=== PATIENT | male | born 1950 | race African-American/Black ===

== ENCOUNTER 2018-06-13 12:07 | Inpatient (IN) | payer OTHER, MEDICAID ==
[~2018-06-13] VITALS: Ht 180.3 cm; Wt 86.2 kg
[2018-06-13] VITALS (19 sets, daily range): BP systolic 99–126; BP diastolic 47–82
[2018-06-13] MEDS ORDERED: SODIUM CHLORIDE 0.9% 1,000 ML IV ONE (13:17)
[2018-06-13 13:20] LABS: BG BASE EXCESS 1.7 mmol/L (-2.0-2.0); BG CARBOXYHEMOGLOBIN 1.6 % (0.5-1.5); BG DEOXYHEMOGLOBIN 6.1 % (0.0-5.0); BG FRACTION INSPIRED OXYGEN 21; BG HCO3 ACT 25.5 mmol/L (22.0-26.0); BG METHEMOGLOBIN 0.2 % (0.0-1.5); BG OXYGEN SATURATION 93.8 % (92.0-98.5); BG OXYHEMOGLOBIN 92.1 % (94.0-97.0); BG PCO2 37.4 mmHg (35.0-45.0); BG PH 7.451 (7.350-7.450); BG PO2 68.1 mmHg (75.0-100.0); BG SAMPLE SITE RIGHT RADIAL; BG TOTAL HEMOGLOBIN 14.9 g/dL (12.0-18.0); BG VENT MODE ROOM AIR
[2018-06-13 13:27] LABS: BASOPHILS % 0.7 % (0.0-2.0); EOSINOPHILS % 0.2 % (0.0-5.0); HEMATOCRIT. 44.4 % (42.0-52.0); HEMOGLOBIN. 14.5 g/dL (14.0-18.0); LYMPHOCYTES % 23.2 % (20.0-50.0); MEAN CORPUSCULAR HEMOGLOBIN 29.8 pg (28.0-32.0); MEAN CORPUSCULAR VOLUME 91.2 fL (80.0-94.0); MONOCYTES % 9.4 % (2.0-8.0); NEUTROPHILS % 66.5 % (40.0-76.0); PLATELET 285 x1000/uL (130-400); RED BLOOD CELL COUNT 4.87 mill/uL (4.7-6.1); RED CELL DISTRIBUTION WIDTH 15.4 % (11.6-14.6)
[2018-06-13 13:39] LABS: INR 1.1; PARTIAL THROMBOPLASTIN TIME 27.1 sec (23.4-31.0); PROTHROMBIN TIME 10.7 sec (9.1-11.1)
[2018-06-13 14:00] LABS: CHLORIDE 107 mEq/L (98-107)
[2018-06-13] MEDS ORDERED: LEVETIRACETAM 500MG PREMIX 100 ML IV ONE (14:00)
[2018-06-13] MEDS ORDERED: DEXAMETHASONE 10 MG/ML VIAL IV ONE (14:00)
[2018-06-13 14:05] LABS: ETHANOL BLOOD < 10 mg/dL
[2018-06-13 14:09] LABS: CREATINE KINASE 437 IU/L (39-308)
[2018-06-13] MEDS ORDERED: NICARDIPINE 50 MG in SODIUM CHLORIDE 0.9% 230 ML IV STA (14:12)
[2018-06-13] MEDS ORDERED: THROMBIN (BOVINE) 5000 UNITS/VIAL TOP ONE (14:29)
[2018-06-13] MEDS ORDERED: GELATIN SPONGE,ABSORBABLE 12-7MM SPONGE ONE (14:29)
[2018-06-13] MEDS ORDERED: NORMAL SALINE 0.9% 10 ML SYR ONE (14:29)
[2018-06-13] MEDS ORDERED: LIDOCAINE HCL/EPINEPHRINE 1%-EPI 1:100,000 20 ML VIAL ONE (14:30)
[2018-06-13] MEDS ORDERED: NICARDIPINE 100 MG in SODIUM CHLORIDE 0.9% 60 ML IV PRN (14:30)
[2018-06-13] MEDS ORDERED: BACITRACIN 50,000 UNITS/VIAL ONE (14:30)
[2018-06-13] MEDS ORDERED: POVIDONE-IODINE OINT 28.4GM TOP ONE (14:31)
[2018-06-13] MEDS ORDERED: ROCURONIUM BROMIDE 10MG/ML VIAL 5ML IV ONE (14:43)
[2018-06-13] MEDS ORDERED: NEOSTIGMINE METHYLSULFATE 1MG/ML 10 ML VIAL ONE (14:43)
[2018-06-13] MEDS ORDERED: MIDAZOLAM HCL 2 MG/2 ML VIAL ONE (14:43)
[2018-06-13] MEDS ORDERED: PROPOFOL 200MG/20ML VIAL IV ONE (14:43)
[2018-06-13] MEDS ORDERED: FENTANYL CITRATE/PF 50MCG/ML 2ML VIAL ONE (14:43)
[2018-06-13] MEDS ORDERED: GLYCOPYRROLATE 0.2 MG/ML 2ML VIAL ONE ×2 (14:44→16:06)
[2018-06-13] MEDS ORDERED: ONDANSETRON HCL 4MG/2ML INJ ONE (14:45)
[2018-06-13] MEDS ORDERED: DEXAMETHASONE 4MG/ML 1ML VIAL ONE (14:55)
[2018-06-13] MEDS ORDERED: BACITRACIN 15GM TUBE TOP ONE (14:56)
[2018-06-13] MEDS ORDERED: LEVETIRACETAM 500MG PREMIX 100 ML IV NR (15:00)
[2018-06-13] MEDS ORDERED: DEXT 5%/LACTATED RINGERS 1,000 ML IV SCH (16:30)
[2018-06-13 17:11] LABS: BG BASE EXCESS -4.7 mmol/L (-2.0-2.0); BG CARBOXYHEMOGLOBIN 0.6 % (0.5-1.5); BG DEOXYHEMOGLOBIN 1.4 % (0.0-5.0); BG FRACTION INSPIRED OXYGEN 100; BG HCO3 ACT 20.3 mmol/L (22.0-26.0); BG METHEMOGLOBIN 0.4 % (0.0-1.5); BG OXYGEN SATURATION 98.6 % (92.0-98.5); BG OXYHEMOGLOBIN 97.6 % (94.0-97.0); BG PCO2 37.3 mmHg (35.0-45.0); BG PH 7.353 (7.350-7.450); BG PO2 145.7 mmHg (75.0-100.0); BG SAMPLE SITE RIGHT RADIAL; BG TIDAL VOLUME(mL) 500 mL; BG TOTAL HEMOGLOBIN 13.9 g/dL (12.0-18.0); BG VENT MODE VENT - A/C; BG VENT RATE 12 set
[2018-06-13] MEDS ORDERED: NICOTINE 21MG PATCH TD NR (18:00)
[2018-06-13] MEDS ORDERED: IPRATROPIUM/ALBUTEROL 0.5-3(2.5)MG/3ML NEB HHN PRN (18:00)
[2018-06-13] MEDS: CEFAZOLIN 1000MG PREMIX 50 ML IV SCH (18:26)
[2018-06-13] MEDS: PANTOPRAZOLE SODIUM 40 MG/VIAL IV SCH (18:55)
[2018-06-13] MEDS: LEVOFLOXACIN 500MG PREMIX 100 ML IV SCH (19:38)
[2018-06-13] MEDS: LEVETIRACETAM 500 MG in SODIUM CHLORIDE 0.9% 100 ML IV SCH (21:55)
[2018-06-14] VITALS (42 sets, daily range): BP systolic 103–150; BP diastolic 61–113
[2018-06-14] MEDS: IPRATROPIUM/ALBUTEROL 0.5-3(2.5)MG/3ML NEB HHN SCH ×4 (01:04→19:48)
[2018-06-14] MEDS: ACETYLCYSTEINE 100MG/ML 10% VIAL 4ML INH SCH ×3 (01:05→13:51)
[2018-06-14] MEDS: CEFAZOLIN 1000MG PREMIX 50 ML IV SCH ×3 (03:47→18:00)
[2018-06-14 06:02] LABS: BASOPHILS % 0.1 % (0.0-2.0); HEMATOCRIT. 38.8 % (42.0-52.0); HEMOGLOBIN. 12.7 g/dL (14.0-18.0); LYMPHOCYTES % 18.1 % (20.0-50.0); MEAN CORPUSCULAR HEMOGLOBIN 29.7 pg (28.0-32.0); MEAN CORPUSCULAR VOLUME 90.5 fL (80.0-94.0); MEAN PLATELET VOLUME 10.1 fl (7.4-10.4); MONOCYTES % 3.9 % (2.0-8.0); NEUTROPHILS % 77.9 % (40.0-76.0); PLATELET 272 x1000/uL (130-400); RED BLOOD CELL COUNT 4.29 mill/uL (4.7-6.1); RED CELL DISTRIBUTION WIDTH 15.1 % (11.6-14.6)
[2018-06-14 06:27] LABS: CHLORIDE 110 mEq/L (98-107)
[2018-06-14] MEDS ORDERED: GELATIN SPONGE,ABSORBABLE 12-7MM SPONGE ONE (07:03)
[2018-06-14] MEDS ORDERED: THROMBIN (BOVINE) 5000 UNITS/VIAL TOP ONE (07:03)
[2018-06-14] MEDS ORDERED: NORMAL SALINE 0.9% 10 ML SYR ONE (07:03)
[2018-06-14] MEDS ORDERED: LIDOCAINE HCL/EPINEPHRINE 1%-EPI 1:100,000 20 ML VIAL ONE (07:04)
[2018-06-14] MEDS ORDERED: BACITRACIN 50,000 UNITS/VIAL ONE (07:04)
[2018-06-14] MEDS: LEVETIRACETAM 500 MG in SODIUM CHLORIDE 0.9% 100 ML IV SCH (09:43)
[2018-06-14] MEDS: PANTOPRAZOLE SODIUM 40 MG/VIAL IV SCH (09:43)
[2018-06-14] MEDS: NICOTINE 21MG PATCH TD SCH (09:43)
[2018-06-14] MEDS: LEVOFLOXACIN 500MG PREMIX 100 ML IV SCH (20:24)
[2018-06-14] MEDS: LEVETIRACETAM 500MG in SODIUM CHLORIDE 0.9% 100ML IV SCH (21:03)
[2018-06-15] VITALS (53 sets, daily range): BP systolic 118–171; BP diastolic 41–102
[2018-06-15] MEDS: IPRATROPIUM/ALBUTEROL 0.5-3(2.5)MG/3ML NEB HHN SCH ×4 (02:04→20:15)
[2018-06-15] MEDS: ACETYLCYSTEINE 100MG/ML 10% VIAL 4ML INH SCH (02:05)
[2018-06-15] MEDS: NICOTINE 21MG PATCH TD SCH (08:33)
[2018-06-15] MEDS: LEVETIRACETAM 500MG in SODIUM CHLORIDE 0.9% 100ML IV SCH ×2 (08:33→21:13)
[2018-06-15] MEDS: MORPHINE SULFATE 4 MG/ML CPJ (NOT FOR IM USE) IV PRN ×2 (10:00→16:20)
[2018-06-15] MEDS: AMLODIPINE 5MG TABLET PO SCH ×2 (13:51→21:14)
[2018-06-15] MEDS: LEVOFLOXACIN 500MG PREMIX 100 ML IV SCH (20:04)
[2018-06-15] MEDS: NICARDIPINE 100 MG in SODIUM CHLORIDE 0.9% 60 ML IV PRN (23:13)
[2018-06-16] VITALS (84 sets, daily range): BP systolic 109–167; BP diastolic 56–89
[2018-06-16] MEDS: IPRATROPIUM/ALBUTEROL 0.5-3(2.5)MG/3ML NEB HHN SCH ×3 (00:13→13:41)
[2018-06-16] MEDS: ACETYLCYSTEINE 100MG/ML 10% VIAL 4ML INH SCH ×2 (00:13→07:17)
[2018-06-16] MEDS: MORPHINE SULFATE 4 MG/ML CPJ (NOT FOR IM USE) IV PRN ×2 (06:03→18:06)
[2018-06-16] MEDS: AMLODIPINE 5MG TABLET PO SCH ×2 (08:13→20:00)
[2018-06-16] MEDS: NICOTINE 21MG PATCH TD SCH (08:13)
[2018-06-16] MEDS: LEVETIRACETAM 500MG in SODIUM CHLORIDE 0.9% 100ML IV SCH (08:41)
[2018-06-16] MEDS: NICARDIPINE 100 MG in SODIUM CHLORIDE 0.9% 60 ML IV PRN ×2 (09:52→20:37)
[2018-06-16] MEDS ORDERED: CLONIDINE 0.1MG TABLET PO PRN (11:15)
[2018-06-16] MEDS ORDERED: BISACODYL 5MG TABLET PO PRN (14:30)
[2018-06-16] MEDS ORDERED: LOSARTAN POTASSIUM 25 MG TABLET PO NR (14:30)
[2018-06-16] MEDS ORDERED: LACTULOSE 20G/30ML UDC PO NR (14:30)
[2018-06-16] MEDS ORDERED: DOCUSATE SODIUM 100MG CAPSULE PO SCH (14:30)
[2018-06-16] MEDS: LEVOFLOXACIN 500MG PREMIX 100 ML IV SCH (19:56)
[2018-06-17] MEDS ORDERED: LOSARTAN POTASSIUM 25 MG TABLET PO SCH (09:00)
== END 2018-06-16 21:30 | disposition short-term general hospital (02) | DRG 25 ==
LOC: ER 12:29 → MICUSO 14:05 → ENRESERV 14:29
PROVIDERS: ADMIT Hospitalist; ATTEND Hospitalist
PROC: 00U207Z Supplement Dura Mater with Autologous Tissue Substitute, Open Approach (ICD-10-PCS; principal; 2018-06-13)
PROC: 00C40ZZ Extirpation of Matter from Intracranial Subdural Space, Open Approach (ICD-10-PCS; 2018-06-13)
PROC: 0NR00JZ Replacement of Skull with Synthetic Substitute, Open Approach (ICD-10-PCS; 2018-06-13)
PROC: 009400Z Drainage of Intracranial Subdural Space with Drainage Device, Open Approach (ICD-10-PCS; 2018-06-13)
DX: I62.02 Nontraumatic subacute subdural hemorrhage (principal); J96.00 Acute respiratory failure, unspecified whether with hypoxia or hypercapnia; J69.0 Pneumonitis due to inhalation of food and vomit; G93.49 Other encephalopathy; J98.11 Atelectasis; E78.5 Hyperlipidemia, unspecified; E11.9 Type 2 diabetes mellitus without complications; F17.210 Nicotine dependence, cigarettes, uncomplicated; I10 Essential (primary) hypertension; Z85.46 Personal history of malignant neoplasm of prostate; Z90.79 Acquired absence of other genital organ(s)
CPT/HCPCS: 36415; 36600; 71045; 74176; 80048; 80307; 80320; 80329; 82140; 82375; 82550; 82805; 82962; 83735; 83880; 84443; 84484; 92610; 93005; 93970; 94002; 94640; 96374; 96375; 97110; 97116; 97162; 97166; 97530; 99291; C1713; C9113; J0690; J1100; J1953; J1956; J2250; J2270; J2405; J2704; J2710; J3010; J3490; J7030; J7040; J7050; J7608; J7620; G0480